=== PATIENT | male | born 1970 | race Caucasian/White ===

== ENCOUNTER 2020-02-14 15:28 | Emergency (ER) | payer BC ==
[~2020-02-14] VITALS: Ht 188 cm; Wt 122.0 kg
[2020-02-14 15:38] VITALS: BP 178/104
--- NOTE | 2020-02-14 16:06 | PHYS DOC ---
Past History Past Medical History: Hypertension Past Surgical History: No Surgical History Alcohol Use: Rarely General Adult EDM: Chief Complaint: LACERATION/AVULSION HPI: HPI: Patient is a 49-year-old male who presents with a laceration to left posterior thigh, near the groin area. At 11 pm last night, he tripped and hit his nightstand and fell onto a plastic phone chan. Patient reports bleeding after the incident, but was controlled. There is no bleeding at this time. Patient's last tetanus was 1 year ago. Review of Systems: Review of Systems: Constitutional: Denies fever or chills Eyes: Denies change in visual acuity HENT: Denies nasal congestion or sore throat Respiratory: Denies cough or shortness of breath Cardiovascular: Denies chest pain or edema GI: Denies abdominal pain, nausea, vomiting, bloody stools or diarrhea : Denies dysuria Musculoskeletal: Denies back pain or joint pain Integument: 0.5 cm laceration to left posterior thigh Neurologic: Denies headache, focal weakness or sensory changes Endocrine: Denies polyuria or polydipsia Lymphatic: Denies swollen glands Psychiatric: Denies depression or anxiety Allergies: Allergies: Allergies Coded Allergies Type Severity Reaction Last Updated Verified Penicillins Allergy Unknown 02/14/20 Yes Physical Exam: PE: Constitutional: Well developed, well nourished, no acute distress, non-toxic appearance. [] HENT: Normocephalic, atraumatic, bilateral external ears normal, oropharynx moist, no oral exudates, nose normal. [] Eyes: PERRLA, EOMI, conjunctiva normal, no discharge. [] Neck: Normal range of motion, no tenderness, supple, no stridor. [] Cardiovascular:Heart rate regular rhythm, no murmur [] Lungs & Thorax: Bilateral breath sounds clear to auscultation [] Abdomen: Bowel sounds normal, soft, no tenderness, no masses, no pulsatile masses. [] Skin: Warm, dry, no erythema, no rash. 0.5cm laceration to left posterior thigh Back: No tenderness, no CVA tenderness. [] Extremities: No tenderness, no cyanosis, no clubbing, ROM intact, no edema. [] Neurologic: Alert and oriented X 3, normal motor function, normal sensory function, no focal deficits noted. [] Psychologic: Affect normal, judgement normal, mood normal. [] Current Patient Data: Vital Signs: Vital Signs Date Time Temp Pulse Resp B/P (MAP) Pulse Ox O2 Delivery O2 Flow Rate FiO2 02/14/20 15:38 98.2 130 16 178/104 (128) 98 Room Air EKG: EKG: [] Radiology/Procedures: Radiology/Procedures: [] Heart Score: Risk Factors: Risk Factors: DM, Current or recent (<one month) smoker, HTN, HLP, family history of CAD, obesity. Risk Scores: Score 0 - 3: 2.5% MACE over next 6 weeks - Discharge Home Score 4 - 6: 20.3% MACE over next 6 weeks - Admit for Clinical Observation Score 7 - 10: 72.7% MACE over next 6 weeks - Early Invasive Strategies Course & Med Decision Making: Course & Med Decision Making Pertinent Labs and Imaging studies reviewed. (See chart for details) [] Dragon Disclaimer: Dragon Disclaimer: This electronic medical record was generated, in whole or in part, using a voice recognition dictation system. Departure Departure: Impression: Primary Impression: Laceration Disposition: 01 DC HOME SELF CARE/HOMELESS Condition: GOOD Referrals: LIANG HEBERT (PCP) Patient Instructions: Laceration Care, Adult, [id number] Additional Instructions: Please take antibiotics as prescribed and make sure to finish the full course to prevent infection. Keep the area covered with guaze. Keep the area dry and clean. Follow up with your PCP on Tuesday or Tuesday. Scripts Cephalexin (KEFLEX) 500 Mg Capsule 500 MG PO QID for laceration for 7 Days, #27 TAB Prov: ADINA BLUE APRN 02/14/20 Sulfamethoxazole/Trimethoprim (BACTRIM DS TABLET) 1 Each Tablet 1 TAB PO BID for laceration for 7 Days, #14 TAB 0 Refills Prov: ADINA BLUE BLOOD BANK MANAGER 02/14/20 ADINA BLUE APRN Feb 14, 2020 16:06
[2020-02-14] MEDS ORDERED: CEPH-264 PO (17:14)
[2020-02-14] MEDS ORDERED: SULF1TAB24 PO (17:14)
[2020-02-14] MEDS ORDERED: CEPHALEXIN 250 MG CAPSULE PO ONE (17:30)
== END 2020-02-14 17:51 | disposition home or self-care (01) ==
LOC: ER 15:28
DX: S71.112A Laceration without foreign body, left thigh, initial encounter (principal); I10 Essential (primary) hypertension; Z88.0 Allergy status to penicillin; W01.0XXA Fall on same level from slipping, tripping and stumbling without subsequent striking against object, initial encounter; Y93.89 Activity, other specified; Y92.89 Other specified places as the place of occurrence of the external cause; Y99.8 Other external cause status
CPT/HCPCS: 99283